=== PATIENT | female | born 1965 | race Caucasian/White ===

== ENCOUNTER 2018-12-25 20:26 | Emergency (ER) | payer MEDICARE ==
[~2018-12-25] VITALS: Ht 167.6 cm; Wt 113.6 kg
[2018-12-25 20:29] VITALS: Ht 167.6 cm; Wt 113.6 kg
[2018-12-25] MEDS ORDERED: ARTIFICIAL TEAR15 ML (20:33)
[2018-12-25] MEDS ORDERED: VOLTAREN100 GM TOPICAL (20:33)
[2018-12-25] MEDS ORDERED: EFFEXOR XR150 MG PO (20:34)
[2018-12-25] MEDS ORDERED: ESTRACE1 MG PO (20:34)
[2018-12-25] MEDS ORDERED: FIBER POWDER (20:34)
[2018-12-25] MEDS ORDERED: MUCINEX600 MG PO (20:35)
[2018-12-25] MEDS ORDERED: FLUTICASONE PRO16 GM NASAL (20:35)
[2018-12-25] MEDS ORDERED: [UNRECOGNIZED DRUG - OTHER] (20:36)
[2018-12-25] MEDS ORDERED: CHRONULAC30 ML PO (20:36)
[2018-12-25] MEDS ORDERED: MELATONIN 3 MG1 TAB PO (20:36)
[2018-12-25] MEDS ORDERED: HYDROCORTISONE CREAM (20:36)
[2018-12-25] MEDS ORDERED: MYSOLINE250 MG PO (20:37)
[2018-12-25] MEDS ORDERED: NAPROXEN SODIU220 M1 PO (20:37)
[2018-12-25] MEDS ORDERED: NEURONTIN 300300 MG PO (20:37)
[2018-12-25] MEDS ORDERED: RISPERDAL2 MG PO (20:38)
[2018-12-25] MEDS ORDERED: PREPARATION H O57 GM TOPICAL (20:38)
[2018-12-25] MEDS ORDERED: ROBITUSSIN DM 110 ML PO (20:38)
[2018-12-25] MEDS ORDERED: THERMOTABS 1 GM1 GM PO (20:39)
[2018-12-25] MEDS ORDERED: SALINE NOSE SPRAY (20:39)
[2018-12-25] MEDS ORDERED: SULINDAC200 MG PO (20:39)
[2018-12-25] MEDS ORDERED: TRAZODONE HCL150 MG PO (20:40)
[2018-12-25] MEDS ORDERED: ULTRAM50 MG PO (20:40)
[2018-12-25] MEDS ORDERED: TEGRETOL XR100 MG PO (20:40)
[2018-12-25] MEDS ORDERED: VITAMIN D31000 UNI2 PO (20:41)
[2018-12-25] MEDS ORDERED: ACETAMINOPHEN (20:41)
[2018-12-26 02:45] VITALS: BP 123/72
== END 2018-12-26 02:45 | disposition home or self-care (01) ==
LOC: D.ER 20:26
DX: R51 Headache (principal); M25.562 Pain in left knee; M25.561 Pain in right knee; M54.2 Cervicalgia; W18.30XA Fall on same level, unspecified, initial encounter; Y93.89 Activity, other specified; Y92.129 Unspecified place in nursing home as the place of occurrence of the external cause